=== PATIENT | female | born 1960 | race Caucasian/White ===

== ENCOUNTER → 2019-06-29 13:55 | Outpatient (CLI) | payer OTHER ==
[2019-06-29 15:51] LABS: BASOPHILS 0.2 % (0-2); EOSINOPHILS 2.4 % (0-7); IMMATURE GRANULOCYTES 0.2 % (0-5); LYMPHOCYTES 28.4 % (15-50); MCH 30.4 pg (26.0-34.0); MCHC 33.3 g/dL (31.0-37.0); MCV 91.3 fL (80.0-100.0); MEAN PLATELET VOLUME 9.8 fL (7.4-10.4); MONOCYTES 7.2 % (2-11); NEUTROPHILS 61.6 % (40-80); PLATELET COUNT 167 10x3/uL (130-400); RBC 4.27 10x6/uL (4.00-5.40); RDW 12.8 % (11.5-14.5); WBC 4.2 10x3/uL (4.8-10.8)
[2019-07-03 09:08] LABS: IMMUNOGLOBULIN E 172 IU/mL (6-495)
[2019-07-04 17:08] LABS: FUNGAL - ASP FLAVUS Negative (Neg:<1:1); FUNGAL - ASP NIGER Negative (Neg:<1:1); FUNGAL - ASPER FUMIGATUS Negative (Neg:<1:1)
== END | disposition home or self-care (01) ==
LOC: D.LABREF 13:55
PROVIDERS: ATTEND Internal Medicine Pulmonary Disease
DX: J45.909 Unspecified asthma, uncomplicated (principal)

== ENCOUNTER → 2019-10-19 11:09 | Outpatient (CLI) | payer OTHER | END | disposition home or self-care (01) | LOC: D.RT 10-16 14:30 | PROVIDERS: ATTEND Internal Medicine Pulmonary Disease | DX: J45.909 Unspecified asthma, uncomplicated (principal) ==